=== PATIENT | female | born 1995 | race Caucasian/White ===

== ENCOUNTER 2018-11-22 13:27 | Outpatient (CLI) | payer BC ==
[~2018-11-22 13:27] MED LIST: NORE1TAB11 PO; [UNRECOGNIZED DRUG - OTHER] PO
[2018-11-22 14:33] LABS: BASOPHILS # (AUTO) 0.03 x10^3/uL (0-0.1); BASOPHILS % (AUTO) 0 % (0-1); EOSINOPHILS # (AUTO) 0.14 x10^3/uL (0-0.4); EOSINOPHILS % (AUTO) 1 % (1-7); LYMPHOCYTES # (AUTO) 2.23 x10^3/uL (1-3.4); LYMPHOCYTES % (AUTO) 20 % (22-44); MD NO; MEAN CORPUSCULAR VOLUME 88.3 fL (80-100); MEAN PLATELET VOLUME 8.9 fL (7.4-10.4); MONOCYTES # (AUTO) 0.64 x10^3/uL (0.2-0.8); MONOCYTES % (AUTO) 6 % (2-9); NEUTROPHILS # (AUTO) 8.17 x10^3/uL (1.8-6.8); NEUTROPHILS % (AUTO) 73 % (42-75); PLATELET COUNT 188 x10^3/uL (130-400); RED BLOOD COUNT 4.03 x10^6/uL (3.82-5.3); RED CELL DISTRIBUTION WIDTH 14.1 % (9.6-15.2)
[2018-11-22 14:36] LABS: ALBUMIN 2.5 g/dL (3.4-5.0); ANION GAP 9 mmol/L (5-15); CALCIUM 8.3 mg/dL (8.5-10.1); CHLORIDE 106 mmol/L (98-107)
[2018-11-22 14:37] LABS: MICROSCOPIC AUTO
[2018-11-22 14:40] LABS: ALANINE AMINOTRANSFERASE 16 U/L (12-78); ALKALINE PHOSPHATASE 202 U/L (45-117); BILIRUBIN,TOTAL 0.2 mg/dL (0.2-1.0); CREATININE 0.63 mg/dL (0.55-1.02); TOTAL PROTEIN 6.2 g/dL (6.4-8.2)
[2018-11-22 15:49] LABS: TOTAL PROTEIN,URINE RANDOM 51 mg/dL (0-12)
[2018-11-22 15:59] LABS: CREATININE,URINE RANDOM < 13.00 mg/dL; PROTEIN/CREATININE RATIO,URINE 3923 (0-200)
[2018-11-23] MEDS ORDERED: PREN1TAB60 PO (19:46)
== END 2018-11-22 16:20 | disposition home or self-care (01) ==
LOC: LDOP 13:27
PROVIDERS: ATTEND Obstetrics & Gynecology Gynecology
DX: O13.3 Gestational [pregnancy-induced] hypertension without significant proteinuria, third trimester (principal); Z3A.38 38 weeks gestation of pregnancy
CPT/HCPCS: 36415; 59025; 80053; 81001; 82570; 84156; 84550; 85025; 99201; G0463

== ENCOUNTER 2018-11-23 12:25 | Inpatient (IN) | payer BC ==
[~2018-11-23] VITALS: Ht 157.5 cm; Wt 72.0 kg
[2018-11-23 12:33] VITALS: BP 130/69
[2018-11-23] MEDS ORDERED: OXYTOCIN 30U/ 0.9% NaCL 500ML 500 ML IV ONE ×2 (14:06→16:33)
[2018-11-23] MEDS: LACTATED RINGERS 1,000 ML IV SCH ×2 (14:10→22:37)
[2018-11-23] MEDS ORDERED: FENTANYL PF 100 MCG/2ML IVPush PRN (14:30)
[2018-11-23] MEDS ORDERED: FENTANYL PF 100 MCG/2ML IV PRN (14:30)
[2018-11-23 14:35] LABS: MEAN CORPUSCULAR HEMOGLOBIN 30.3 pg (27.0-34.8); MEAN CORPUSCULAR HGB CONC 34.4 g/dL (32.4-35.8); MEAN CORPUSCULAR VOLUME 88.2 fL (80-100); MEAN PLATELET VOLUME 8.9 fL (7.4-10.4); PLATELET COUNT 199 x10^3/uL (130-400)
[2018-11-23 14:38] LABS: BASOPHILS % (AUTO) 0 % (0-1); EOSINOPHILS # (AUTO) 0.02 x10^3/uL (0-0.4); EOSINOPHILS % (AUTO) 0 % (1-7); LYMPHOCYTES % (AUTO) 20 % (22-44); MD NO; MONOCYTES # (AUTO) 0.46 x10^3/uL (0.2-0.8); MONOCYTES % (AUTO) 4 % (2-9); NEUTROPHILS # (AUTO) 8.23 x10^3/uL (1.8-6.8); NEUTROPHILS % (AUTO) 75 % (42-75)
[2018-11-23 14:47] LABS: ALANINE AMINOTRANSFERASE 16 U/L (12-78); ALBUMIN 2.5 g/dL (3.4-5.0); ANION GAP 8 mmol/L (5-15); CALCIUM 8.6 mg/dL (8.5-10.1); CHLORIDE 110 mmol/L (98-107); CREATININE 0.76 mg/dL (0.55-1.02)
[2018-11-23 14:49] LABS: ALKALINE PHOSPHATASE 190 U/L (45-117); BILIRUBIN, DIRECT < 0.1 mg/dL (0.1-0.2); BILIRUBIN,TOTAL 0.1 mg/dL (0.2-1.0); TOTAL PROTEIN 6.2 g/dL (6.4-8.2)
[2018-11-23] MEDS ORDERED: LIDOCAINE 1%, 20ML ONE (14:53)
[2018-11-23] MEDS ORDERED: NEWBORN KIT ONE (14:53)
[2018-11-23] MEDS ORDERED: OXYTOCIN 30U/ 0.9% NaCL 500ML 500 ML ONE (14:54)
[2018-11-23] MEDS ORDERED: MISOPROSTOL 200 MCG TABLET ONE (14:54)
[2018-11-23 16:15] LABS: MICROSCOPIC AUTO
[2018-11-23 16:42] LABS: CREATININE,URINE RANDOM 31.4 mg/dL
[2018-11-23] MEDS ORDERED: CALCIUM CARBONATE 500 MG TAB.CHEW PO PRN (17:00)
[2018-11-23] MEDS ORDERED: SODIUM CITRATE/CITRIC ACID 30 ML UDC PO PRN (17:00)
[2018-11-23] MEDS ORDERED: ONDANSETRON 2MG/ML, 2ML IVPush PRN (17:00)
[2018-11-23] MEDS ORDERED: PREN1TAB60 PO (19:46)
[2018-11-23] MEDS ORDERED: FENTANYL/BUPIV./NS/PF 250 ML EPIDCONT SCH (21:52)
[2018-11-23] MEDS ORDERED: FENTANYL PF 500 MCG, BUPIVACAINE/PF 0.5%, 30ML 62.5 ML in SODIUM CHLORIDE 0.9% 177.5 ML EPIDCONT SCH (22:00)
[2018-11-24] MEDS ORDERED: FENTANYL PF 100 MCG/2ML ONE (01:16)
[2018-11-24] MEDS ORDERED: LACTATED RINGERS 1,000 ML IV SCH (01:21)
[2018-11-24] MEDS ORDERED: FENTANYL/BUPIV./NS/PF 250 ML EPIDCONT SCH (01:21)
[2018-11-24] MEDS ORDERED: BUPIVACAINE 0.25% ONE (01:22)
[2018-11-24] MEDS ORDERED: LACTATED RINGERS 1,000 ML IVBOLUS PRN (01:30)
[2018-11-24] MEDS ORDERED: NALOXONE 0.4 MG/ML, 1ML IVPush PRN (01:30)
[2018-11-24] MEDS ORDERED: EPHEDRINE 50 MG/ML, 1ML IVPush PRN (01:30)
[2018-11-24] MEDS ORDERED: OXYTOCIN 30U/ 0.9% NaCL 500ML 500 ML IV PRN (02:00)
[2018-11-24] MEDS: OXYTOCIN 30U/ 0.9% NaCL 500ML 500 ML IV SCH ×2 (08:18→18:18)
[2018-11-24] MEDS ORDERED: CALCIUM CARBONATE 500 MG TAB.CHEW PO PRN (08:30)
[2018-11-24] MEDS ORDERED: RHOGAM FROM BLOOD BANK 1 NOTE EA IM/IV ONE (08:30)
[2018-11-24] MEDS ORDERED: MEASLES,MUMPS&RUBELLA VACC/PF 0.5 ML SQ PRN (08:30)
[2018-11-24] MEDS ORDERED: MISOPROSTOL 200 MCG TABLET PR PRN (08:30)
[2018-11-24] MEDS ORDERED: OXYcodone IR 5MG TABLET PO PRN (08:30)
[2018-11-24] MEDS ORDERED: ONDANSETRON 2MG/ML, 2ML IV PRN (08:30)
[2018-11-24] MEDS ORDERED: DIPH,PERTUSS(ACELL),TET VAC/PF NC IM-VACC PRN (08:30)
[2018-11-24] MEDS ORDERED: MAGNESIUM HYDROXIDE 8%, 30ML UDC PO PRN (08:30)
[2018-11-24] MEDS: PRENATAL VIT/IRON/FA 1 EACH TABLET PO SCH (09:00)
[2018-11-24] MEDS ORDERED: OXYTOCIN 30U/ 0.9% NaCL 500ML 500 ML ONE (09:14)
[2018-11-24] MEDS ORDERED: IBUPROFEN 600 MG TABLET ONE (09:14)
[2018-11-24] MEDS: IBUPROFEN 600 MG TABLET PO PRN ×3 (09:54→22:47)
[2018-11-24 11:30] VITALS: BP 128/78
[2018-11-24] MEDS: OXYcodone/APAP 5/325MG TABLET PO PRN ×3 (12:05→22:47)
[2018-11-24 16:03] LABS: BASOPHILS # (AUTO) 0.03 x10^3/uL (0-0.1); BASOPHILS % (AUTO) 0 % (0-1); EOSINOPHILS # (AUTO) 0.01 x10^3/uL (0-0.4); EOSINOPHILS % (AUTO) 0 % (1-7); LYMPHOCYTES # (AUTO) 1.97 x10^3/uL (1-3.4); LYMPHOCYTES % (AUTO) 15 % (22-44); MD NO; MEAN CORPUSCULAR HEMOGLOBIN 30.8 pg (27.0-34.8); MEAN CORPUSCULAR HGB CONC 35.1 g/dL (32.4-35.8); MEAN CORPUSCULAR VOLUME 87.8 fL (80-100); MEAN PLATELET VOLUME 8.6 fL (7.4-10.4); MONOCYTES # (AUTO) 0.62 x10^3/uL (0.2-0.8); MONOCYTES % (AUTO) 5 % (2-9); NEUTROPHILS # (AUTO) 10.93 x10^3/uL (1.8-6.8); NEUTROPHILS % (AUTO) 81 % (42-75); PLATELET COUNT 153 x10^3/uL (130-400); RED CELL DISTRIBUTION WIDTH 14.2 % (9.6-15.2)
[2018-11-24 16:15] VITALS: BP 124/92
[2018-11-24 20:00] VITALS: BP 134/92
[2018-11-24] MEDS: DOCUSATE 100 MG CAPSULE PO PRN (22:47)
[2018-11-25] VITALS: BP 117/78
[2018-11-25] MEDS: IBUPROFEN 600 MG TABLET PO PRN (05:52)
[2018-11-25] MEDS: OXYcodone/APAP 5/325MG TABLET PO PRN ×3 (05:52→19:39)
[2018-11-25 09:00] VITALS: BP 131/76
[2018-11-25] MEDS: PRENATAL VIT/IRON/FA 1 EACH TABLET PO SCH (11:09)
[2018-11-25] MEDS: DOCUSATE 100 MG CAPSULE PO PRN ×2 (11:09→19:39)
[2018-11-25 19:15] VITALS: BP 136/85
[2018-11-26] MEDS: IBUPROFEN 600 MG TABLET PO PRN ×2 (00:35→08:26)
[2018-11-26 00:42] VITALS: BP 133/89
[2018-11-26 08:00] VITALS: BP 153/99
[2018-11-26] MEDS: PRENATAL VIT/IRON/FA 1 EACH TABLET PO SCH (08:26)
[2018-11-26] MEDS: OXYcodone/APAP 5/325MG TABLET PO PRN (08:26)
[2018-11-26] MEDS: DOCUSATE 100 MG CAPSULE PO PRN (08:26)
[2018-11-26] MEDS ORDERED: IBUP-1222 PO (11:21)
== END 2018-11-26 12:25 | disposition home or self-care (01) | DRG 807 ==
LOC: LDOP 12:25 → LDIP 14:22 → 2NW 11-24 11:25
PROVIDERS: ADMIT Obstetrics & Gynecology Gynecology; ATTEND Obstetrics & Gynecology Gynecology
PROC: 10E0XZZ Delivery of Products of Conception, External Approach (ICD-10-PCS; principal; 2018-11-24)
PROC: 0KQM0ZZ Repair Perineum Muscle, Open Approach (ICD-10-PCS; 2018-11-24)
PROC: 3E033VJ Introduction of Other Hormone into Peripheral Vein, Percutaneous Approach (ICD-10-PCS; 2018-11-24)
PROC: 3E0R3BZ Introduction of Anesthetic Agent into Spinal Canal, Percutaneous Approach (ICD-10-PCS; 2018-11-24)
PROC: 00HU33Z Insertion of Infusion Device into Spinal Canal, Percutaneous Approach (ICD-10-PCS; 2018-11-24)
PROC: 3E0234Z Introduction of Serum, Toxoid and Vaccine into Muscle, Percutaneous Approach (ICD-10-PCS; 2018-11-24)
DX: O14.94 Unspecified pre-eclampsia, complicating childbirth (principal); Z37.0 Single live birth; Z67.91 Unspecified blood type, Rh negative; Z3A.38 38 weeks gestation of pregnancy; Z80.3 Family history of malignant neoplasm of breast; Z80.41 Family history of malignant neoplasm of ovary; O70.1 Second degree perineal laceration during delivery; Z85.3 Personal history of malignant neoplasm of breast; Z85.43 Personal history of malignant neoplasm of ovary; Z85.89 Personal history of malignant neoplasm of other organs and systems; L91.8 Other hypertrophic disorders of the skin; O99.72 Diseases of the skin and subcutaneous tissue complicating childbirth; O26.893 Other specified pregnancy related conditions, third trimester
CPT/HCPCS: 36415; J2790; 80053; 81001; 82248; 82570; 82803; 84156; 84550; 85025; 85461; 86850; 86900; G0378; J3010; J3490; J2590; J7050; J7120